=== PATIENT | female | born 1945 | race Caucasian/White ===

== ENCOUNTER → 2016-09-19 | Outpatient (CLI) | payer MEDICARE | END | disposition home or self-care (01) | LOC: PCVCIMAG 12:58 | PROVIDERS: ATTEND Internal Medicine Cardiovascular Disease | DX: I48.91 Unspecified atrial fibrillation (principal); I07.1 Rheumatic tricuspid insufficiency; J44.9 Chronic obstructive pulmonary disease, unspecified; E78.00 Pure hypercholesterolemia, unspecified | CPT/HCPCS: 93306; G0463 ==

== ENCOUNTER → 2016-11-23 | Outpatient (CLI) | payer MEDICARE ==
[~2016-11-23] MED LIST: BENZOCAINE ONE 20% MUCOSAL SPRAY.; IV NORMAL SALINE 1000ML BAG 1,000 ML ONE; MIDAZOLAM HCL/PF 2 MG/2 ML VIAL. ONE; fentaNYL PF VIAL 100 MCG/2 ML VIAL ONE
--- NOTE | 2016-11-23 10:57 | PCVCIMAG ---
APPROVED REPORT Study performed: 11/23/2016 09:41:19 EXAM: Comprehensive 2D, Doppler, and color-flow Echocardiogram Patient Location: [facility] Status: routine Other Information Study Quality: Good Indications Atrial Fibrillation Echo Enhancing Agent Indication: Rule out Shunt Agent(s) / Amount(s) Used: Agitated Saline 10 cc Comments: Negative contrast study for shunt flow. Procedure After obtaining informed consent, patient underwent transesophageal echo in the [facility]. Type of Sedation : Conscious Sedation Sedation was administered by Nuria Leos RN. Sedation was achieved intravenously with: Versed (2mg) Fentanyl (200mcg) Transesophageal probe was inserted and advanced into esophagus without difficulty by Estuardo Villalta MD. Echo enhancement indication: R/O Septal defect. Echo enhancement agent administered: Agitated Saline The SILVIA was performed without complications. Throughout the procedure, the blood pressure, pulse oximetry, cardiac rhythm, and rate were monitored. The patient tolerated the procedure without adverse effects. Recovery from conscious sedation was uneventful and vital signs were stable. Left Ventricle The left ventricle is normal size. There is normal LV segmental wall motion. There is normal left ventricular wall thickness. Left ventricular systolic function is normal. The left ventricular ejection fraction is within the normal range. Right Ventricle The right ventricle is normal size. The right ventricular systolic function is normal. Atria The left atrium size is normal. There is no mass or thrombus in the left atrium or left atrial appendage. Injection of bubbles documented no interatrial shunt. The right atrium size is normal. Aortic Valve The aortic valve is normal in structure. No aortic regurgitation is present. There is no aortic valvular stenosis. Mitral Valve The mitral valve is normal in structure. There is no mitral valve regurgitation noted. No evidence of mitral valve stenosis. Tricuspid Valve The tricuspid valve is normal in structure. There is trivial tricuspid valve regurgitation noted. Pulmonic Valve The pulmonary valve is normal in structure. There is no pulmonic valvular regurgitation. Great Vessels The aortic root is normal in size. Moderate plaque in thoracic aorta. Pericardium There is no pericardial effusion. <Conclusion> Left ventricular systolic function is normal. There is normal LV segmental wall motion. EF 60% No mass or thrombus in the left atrium or left atrial appendage. Injection of bubbles documented no interatrial shunt. The aortic valve is normal in structure. No aortic regurgitation or stenosis The mitral valve is normal in structure. No mitral valve regurgitation Moderate plaque in thoracic aorta. There is no pericardial effusion.
== END | disposition home or self-care (01) ==
LOC: PCVCINTER 08:59
PROVIDERS: ATTEND Internal Medicine Cardiovascular Disease
DX: I48.91 Unspecified atrial fibrillation (principal); I07.1 Rheumatic tricuspid insufficiency
CPT/HCPCS: 93312; 99152; J2250; J3010; J7030

== ENCOUNTER → 2017-01-01 | Outpatient (CLI) | payer MEDICARE ==
--- NOTE | 2017-01-02 18:34 | PCVCIMAG ---
APPROVED REPORT Exam: Nuclear Stress Test Indication: Atrial Fibrillation, Chest pain Patient Location: Out-Patient Stress Nurse: Rachele Dolan RN, RACHEL Merrill Tech:Dora DOV GoreMT Ht: 5 ft 7 in Wt: 181 lbs BSA: 1.94 m2 HR: 64 bpm BP: 181/94 mmHg BMI: 28.3 Rhythm: SR Medical History Medical History: HTN, COPD, Atrial Fibrillation, Smoker - Recently Quit, Age Medications: Flecanide, Eliquis, ASA, Atorvastatin, Metoprolol Allergies: No known drug allergies Pretest Chest Pain Characteristics: No chest pain Exercise History: Physically active Meds Held (24 hrs): Metoprolol NM EXAM: Myocardial Perfusion REST/STRESS Imaging Protocol: Rest Tc-99m/Stress Tc-99m 1 day Resting Data Rest SPECT myocardial perfusion imaging was performed in supine position 45 minutes following the intravenous injection of 10.7 mCi of Tc-99m Sestamibi. Time of rest injection: 829 Date: 01/01/2017 Administration Route: IV Administration Site: Right Hand Pharmacologic Stress Pharmacologic stress test was performed by injecting Regadenoson 0.4 mg IV push followed by the intravenous injection of 35.5 mCi of Tc-99m Sestamibi. Time of stress injection: 1030 Date: 01/01/2017 Administration Route: IV Administration Site: Right Hand Gated Stress SPECT was performed 45 minutes after stress injection. The images were gated to evaluate regional wall motion and calculate left ventricular ejection fraction. Study Data Post stress, the left ventricular ejection was 68%.. SSS: 2 SRS: 0 SDS: 2 TID = 1.02. Perfusion No evidence of stress induced ischemia or prior myocardial infarction. Wall Motion Normal left ventricular size and function with no regional wall motion abnormalities. Nuclear Conclusion No evidence of stress induced ischemia or prior myocardial infarction. Normal left ventricular size and function with no regional wall motion abnormalities. Post stress, the left ventricular ejection was 68%.. No prior study available for comparison. Interpreted by: Que Batres MD Electronically Approved: 01/02/2017 08:00:35 Stress Test Details Stress Test: Pharmacologic stress was paired with low level exercise. Reason for pharmacologic stress test: physical limitation. HR Resting HR: 64 bpmMax Heart Rate (APMHR): 150 bpm Max HR Achieved: 86 bpmTarget HR (85% APMHR): 127 bpm % of APMHR: 57 Recovery HR: 71 bpm BP Resting BP: 181/94 mmHg Max BP: 156/84 mmHg ECG Resting ECG: Sinus Rhythm Stress ECG: Sinus Rhythm, Sinus Rhythm, NSSTT changes Recovery ECG: Sinus Rhythm Clinical Reason for Termination: Completed protocol Stress Symptoms: Dyspnea Exercise duration: 4 min 00 sec Exercise capacity: 1.6 METs Symptoms resolved during recovery. Stress ECG Conclusion ECG: Non-ischemic <Conclusion> ECG: Non-ischemic
== END | disposition home or self-care (01) ==
LOC: PCVCIMAG 08:01
PROVIDERS: ATTEND Internal Medicine Cardiovascular Disease
DX: I48.0 Paroxysmal atrial fibrillation (principal); I10 Essential (primary) hypertension; J44.9 Chronic obstructive pulmonary disease, unspecified; F17.200 Nicotine dependence, unspecified, uncomplicated
CPT/HCPCS: 78452; 93017; A9500